=== PATIENT | female | born 1950 | race Two or more races ===

== ENCOUNTER 2023-12-13 23:06 | Inpatient (IN) | payer OTHER, MEDICAID ==
[~2023-12-13] VITALS: Ht 160 cm; Wt 74.2 kg
[2023-12-13] MEDS ORDERED: ONDANSETRON HCL 4 MG/2 ML VIAL IV ONE (23:15)
[2023-12-13] MEDS ORDERED: SODIUM CHLORIDE 0.9% 500 ML IVB ONE (23:15)
[2023-12-13 23:51] LABS: Chloride 107 mmol/L (98-107); Potassium 3.6 mmol/L (3.5-5.1); Sodium 138 mmol/L (136-145)
[2023-12-13 23:52] LABS: Anion Gap 12 (5-15); Calcium 9.5 mg/dL (8.7-10.4); Carbon Dioxide 19 mmol/L (20-30)
[2023-12-13 23:55] LABS: Eosinophils # (auto) 0.1 10 ^3/uL (0-0.8); Hematocrit 41.8 % (36.0-46.0); Nucleated Red Blood Cells % 0.1 %; Red Cell Distribution Width 14.4 % (11.8-14.3); White Blood Cell 12.8 10^3/uL (4.4-10.8)
[2023-12-13 23:56] LABS: Basophils # (auto) 0.1 10 ^3/uL (0-0.2); Basophils % (auto) 0.6 % (0.0-2.0); Eosinophils % (auto) 0.8 % (0.0-7.0); Hemoglobin 13.4 g/dL (12.2-16.2); Lymphocytes % (auto) 23.1 % (10.0-50.0); Mean Corpuscular Hemoglobin 26.8 pg (28.0-32.0); Mean Corpuscular Volume 83.5 fL (80.0-100.0); Monocytes # (auto) 0.5 10 ^3/uL (0-1.3); Monocytes % (auto) 3.6 % (0.0-12.0); Neutrophils # (auto) 9.2 10 ^3/uL (1.6-8.6); Neutrophils % (auto) 71.9 % (37.0-80.0); Red Blood Cells 5.01 10^6/uL (4.0-5.20)
[2023-12-13 23:57] LABS: Blood Urea Nitrogen 20 mg/dL (9-23); Glucose 188 mg/dL (74-106); Lipase 134 U/L (12-53)
[2023-12-14 00:54] LABS: Lactic Acid w/Reflex 6.2 mmol/L (0.4-2.0)
[2023-12-14] MEDS ORDERED: SODIUM CHLORIDE 0.9% 1,000 ML IV ONE ×2 (02:30→02:45)
[2023-12-14] MEDS ORDERED: cefTRIAXone 1GM/50ML D5W 50 ML IV ONE (02:45)
[2023-12-14] MEDS ORDERED: VANCOMYCIN 1GM/200ML 200 ML IV ONE (02:45)
[2023-12-14 02:50] VITALS: PULSE 84; RESP 17; O2SAT 96
[2023-12-14] MEDS ORDERED: MORPHINE SULFATE INJ 2 MG/ml SYRG IV PRN (04:00)
[2023-12-14] MEDS ORDERED: ONDANSETRON HCL 4 MG/2 ML VIAL IV PRN (04:00)
[2023-12-14] MEDS ORDERED: ACETAMINOPHEN 325 MG TAB PO PRN (04:00)
[2023-12-14] MEDS ORDERED: DEXTROSE (50%) 50ML SYRG IV PRN (04:00)
[2023-12-14] MEDS ORDERED: HYDROcodone-ACET 5/325MG TAB PO PRN (04:00)
[2023-12-14 05:05] LABS: COVID19 ANTIGEN SOFIA FIA NEGATIVE (NEGATIVE)
[2023-12-14] MEDS: InsuLIN REG 1unit/0.01ml Soln (100units/ml) SC SCH ×4 (07:00→23:43)
[2023-12-14] MEDS: ACCU-CHEK COMFORT CURVE STRIP VI SCH ×4 (07:00→23:39)
[2023-12-14 07:40] VITALS: RESP 17; O2SAT 96
[2023-12-14] MEDS: metroNIDAZOLE 500MG/100ML 100 ML IV SCH ×3 (08:36→23:39)
[2023-12-14] MEDS: cefTRIAXone 1GM/50ML D5W 50 ML IV SCH (08:36)
[2023-12-14 08:47] LABS: Urine Bacteria FEW /hpf (None Seen); Urine Blood Negative /uL (Negative); Urine Clarity HAZY (Clear); Urine Color Yellow (Yellow); Urine Hyaline Cast MOD /lpf (0 - 2); Urine Mucus FEW (None Seen); Urine Protein, UAD 1+ (Negative); Urine Specific Gravity 1.016 (1.001-1.035); Urine Urobilinogen Normal (Negative); Urine WBC 7 /hpf (0 - 5)
[2023-12-14] MEDS ORDERED: PANTOPRAZOLE 40 MG/10 ML VIAL INJ IV ONE (13:30)
[2023-12-14 14:00] LABS: Amphetamine Screen, Urine Neg (NEGATIVE); Benzodiazephine Screen, Urine Neg (NEGATIVE)
[2023-12-14 14:01] LABS: Barbiturate Scree,Urine Neg (NEGATIVE); Cannabinoid Screen, Urine Neg (NEGATIVE); Cocaine Screen, Urine Neg (NEGATIVE); Opiate Scree,Urine Neg (NEGATIVE); Phencyclidine Screen, Urine Neg (NEGATIVE)
[2023-12-14] MEDS ORDERED: TRAZ-227 PO (18:43)
[2023-12-14] MEDS ORDERED: DICL50TA4 PO (18:43)
[2023-12-14] MEDS ORDERED: BENA40TA70 PO (18:43)
[2023-12-14] MEDS ORDERED: ATOR40TA52 PO (18:43)
[2023-12-14] MEDS ORDERED: METO1TAB9 PO (18:43)
[2023-12-14] MEDS ORDERED: HYDR25TA5 PO (18:43)
[2023-12-14] MEDS ORDERED: METF-370 PO (18:43)
[2023-12-14 18:46] VITALS: BP 132/58; PULSE 65; RESP 18
[2023-12-14] MEDS ORDERED: AMLO1TAB23 PO (18:46)
[2023-12-14] MEDS ORDERED: HYDR-4297 PO (18:46)
[2023-12-14] MEDS ORDERED: FLUO20CA90 PO (18:46)
[2023-12-14 20:00] VITALS: BP 159/44; PULSE 70; RESP 18; TEMP 98.2; O2SAT 96
[2023-12-14 22:00] VITALS: BP 159/44; PULSE 70; RESP 18; TEMP 98.2; O2SAT 96
[2023-12-15] VITALS (7 sets, daily range): BP systolic 114–192; BP diastolic 53–58; PULSE 56–63; RESP 16–22; TEMP 98–98.7; O2SAT 95–99
[2023-12-15] MEDS: metroNIDAZOLE 500MG/100ML 100 ML IV SCH ×3 (06:08→21:07)
[2023-12-15] MEDS: InsuLIN REG 1unit/0.01ml Soln (100units/ml) SC SCH ×4 (06:08→21:19)
[2023-12-15] MEDS: ACCU-CHEK COMFORT CURVE STRIP VI SCH ×4 (06:08→21:08)
[2023-12-15 06:37] LABS: Basophils # (auto) 0 10 ^3/uL (0-0.2); Eosinophils # (auto) 0.1 10 ^3/uL (0-0.8); Hemoglobin 9.8 g/dL (12.2-16.2); Mean Corpuscular Hemoglobin 26.8 pg (28.0-32.0); Monocytes # (auto) 0.5 10 ^3/uL (0-1.3)
[2023-12-15 06:40] LABS: Basophils % (auto) 0.6 % (0.0-2.0); Eosinophils % (auto) 1.4 % (0.0-7.0); Hematocrit 29.3 % (36.0-46.0); Lymphocytes # (auto) 2.2 10 ^3/uL (0.4-5.4); Mean Corpuscular Hgb Conc. 33.3 g/dL (32.0-36.0); Mean Corpuscular Volume 80.6 fL (80.0-100.0); Monocytes % (auto) 8.9 % (0.0-12.0); Neutrophils # (auto) 2.7 10 ^3/uL (1.6-8.6); Neutrophils % (auto) 49.1 % (37.0-80.0); Nucleated Red Blood Cells % 0.2 %; Red Blood Cells 3.64 10^6/uL (4.0-5.20); Red Cell Distribution Width 14.5 % (11.8-14.3); White Blood Cell 5.6 10^3/uL (4.4-10.8)
[2023-12-15 06:41] LABS: Alanine Aminotransferase 12 U/L (7-40); Albumin 3.6 g/dL (3.2-4.8); Alkaline Phosphatase 26 U/L (46-116); Anion Gap 7 (5-15); Aspartate Aminotransferase 16 U/L (13-40); BUN/Creatinine Ratio 12.1 (10.0-20.0); Bilirubin, Total 0.4 mg/dL (0.2-1.0); Blood Urea Nitrogen 13 mg/dL (9-23); Calcium 8.8 mg/dL (8.5-10.1); Carbon Dioxide 23 mmol/L (20-30); Chloride 113 mmol/L (98-107); Glucose 97 mg/dL (74-106); Potassium 3.4 mmol/L (3.5-5.1); Sodium 143 mmol/L (136-145); Total Protein 5.7 g/dL (5.7-8.2)
[2023-12-15] MEDS: PANTOPRAZOLE 40 MG/10 ML VIAL INJ IV SCH (09:05)
[2023-12-15] MEDS: cefTRIAXone 1GM/50ML D5W 50 ML IV SCH (09:05)
[2023-12-15] MEDS: FLUoxetine HCL 20 MG CAP PO SCH (12:51)
[2023-12-15] MEDS: METOPROLOL SUCCINATE XL 50 MG TAB PO SCH (12:51)
[2023-12-15] MEDS: amLODIPine BESYLATE 5 MG TAB PO SCH (12:52)
[2023-12-15] MEDS: hydroCHLOROthiazide 25 MG TAB PO SCH (12:52)
[2023-12-15] MEDS: hydrALAZINE HCL 25 MG TAB PO SCH ×2 (14:36→21:08)
[2023-12-15] MEDS: metFORMIN HYDROCHLORIDE 500 MG TAB PO SCH (21:08)
[2023-12-15] MEDS: DICLOFENAC SODIUM 50 MG PO SCH (21:21)
[2023-12-15] MEDS ORDERED: ATORVASTATIN 20 MG TAB PO SCH (22:00)
[2023-12-16 05:00] VITALS: BP 143/49; PULSE 59; RESP 20; TEMP 98.3; O2SAT 96
[2023-12-16] MEDS: metroNIDAZOLE 500MG/100ML 100 ML IV SCH (05:33)
[2023-12-16] MEDS: hydrALAZINE HCL 25 MG TAB PO SCH (05:36)
[2023-12-16] MEDS: ACCU-CHEK COMFORT CURVE STRIP VI SCH (05:38)
[2023-12-16] MEDS: InsuLIN REG 1unit/0.01ml Soln (100units/ml) SC SCH (06:08)
[2023-12-16] MEDS ORDERED: VANCOMYCIN PER PHARMACY 0 MG IV SCH (07:15)
[2023-12-16] MEDS ORDERED: VANCOMYCIN 1GM/200ML 200 ML IV ONE (07:15)
[2023-12-16 08:00] VITALS: PULSE 72; RESP 18; O2SAT 95
[2023-12-16 08:19] VITALS: BP 111/22; PULSE 61; RESP 17; TEMP 98.3; O2SAT 95
[2023-12-16] MEDS: PANTOPRAZOLE 40 MG/10 ML VIAL INJ IV SCH (09:11)
[2023-12-16] MEDS: cefTRIAXone 1GM/50ML D5W 50 ML IV SCH (09:11)
[2023-12-16] MEDS: FLUoxetine HCL 20 MG CAP PO SCH (09:11)
[2023-12-16] MEDS: metFORMIN HYDROCHLORIDE 500 MG TAB PO SCH (09:12)
[2023-12-16] MEDS: amLODIPine BESYLATE 5 MG TAB PO SCH (09:12)
[2023-12-16] MEDS: METOPROLOL SUCCINATE XL 50 MG TAB PO SCH (09:12)
[2023-12-16] MEDS: hydroCHLOROthiazide 25 MG TAB PO SCH (09:13)
[2023-12-16] MEDS: DICLOFENAC SODIUM 50 MG PO SCH (09:13)
[2023-12-16] MEDS ORDERED: PANT40T PO (09:31)
[2023-12-16] MEDS ORDERED: METR-344 PO (09:31)
[2023-12-16] MEDS ORDERED: LEVO500T91 PO (09:31)
[2023-12-16] MEDS ORDERED: hydroCHLOROthiazide 25 MG TAB PO SCH (10:00)
[2023-12-16] MEDS ORDERED: amLODIPine BESYLATE 5 MG TAB PO SCH (10:00)
[2023-12-16] MEDS ORDERED: METOPROLOL SUCCINATE XL 50 MG TAB PO SCH (10:00)
[2023-12-16] MEDS ORDERED: traZODone HCL 50 MG TAB PO SCH (10:00)
[2023-12-16] MEDS ORDERED: FLUoxetine HCL 20 MG CAP PO SCH (10:00)
[2023-12-16 11:09] VITALS: BP 111/72; PULSE 68
[2023-12-17] MEDS ORDERED: VANCOMYCIN 1GM/200ML 200 ML IV SCH (05:00)
== END 2023-12-16 11:35 | disposition home or self-care (01) | DRG 871 ==
LOC: ER 23:06 → EDBD 23:06 → OVERFLOW 12-14 03:54 → CENTRAL 12-14 17:51
PROVIDERS: ADMIT Nurse Practitioner; ATTEND Family Medicine
DX: A41.9 Sepsis, unspecified organism (principal); K85.90 Acute pancreatitis without necrosis or infection, unspecified; N17.9 Acute kidney failure, unspecified; N39.0 Urinary tract infection, site not specified; K56.7 Ileus, unspecified; E87.21 Acute metabolic acidosis; K52.9 Noninfective gastroenteritis and colitis, unspecified; Z20.822 Contact with and (suspected) exposure to COVID-19; E86.0 Dehydration; E11.9 Type 2 diabetes mellitus without complications; I10 Essential (primary) hypertension; Z86.73 Personal history of transient ischemic attack (TIA), and cerebral infarction without residual deficits; Z90.49 Acquired absence of other specified parts of digestive tract
CPT/HCPCS: 36415; 70450; 80048; 80053; 80202; 80307; 80320; 81001; 82565; 82962; 83605; 83690; 85025; 87040; 87045; 87077; 87426; 87427; 93005; 96361; 96365; 96366; 96367; 96368; 96375; 99291; C9113; G0378; J1815; J2405; J3490

== ENCOUNTER 2024-11-17 10:41 | Emergency (ER) | payer OTHER, MEDICAID ==
[~2024-11-17] VITALS: Ht 167.6 cm; Wt 77.0 kg
[~2024-11-17 10:41] MED LIST: AMLO1TAB23 PO; ATOR40TA52 PO; BENA40TA71 PO; DICL50TA4 PO; FLUO-470 PO; HYDR25TA5 PO; HYDR50TA47 PO; LEVO500T91 PO; METF-370 PO; METO1TAB9 PO; METR-344 PO; PANT40T PO; TRAZ-227 PO
[2024-11-17 11:44] LABS: Hematocrit 34.1 % (36.0-46.0); Hemoglobin 11.4 g/dL (12.2-16.2); Mean Corpuscular Hemoglobin 28.7 pg (28.0-32.0); Mean Corpuscular Hgb Conc. 33.3 g/dL (32.0-36.0); Mean Corpuscular Volume 86.2 fL (80.0-100.0); Platelet Count (auto) 253 10^3/uL (140-450); Red Blood Cells 3.95 10^6/uL (4.0-5.20); White Blood Cell 5.6 10^3/uL (4.4-10.8)
--- NOTE | 2024-11-17 11:48 | DVH ---
CHEST RADIOGRAPH Indication: dizzy Technique: Single frontal view of the chest was obtained COMPARISON: None FINDINGS: Lines and Tubes: None Lungs: Clear Pleura: No effusion. No pneumothorax. Cardiomediastinal contours: Unremarkable Bones: Unremarkable IMPRESSION: No acute disease.
[2024-11-17 11:56] LABS: Alanine Aminotransferase 30 U/L (7-40); Albumin 4.3 g/dL (3.2-4.8); Anion Gap 9 (5-15); Aspartate Aminotransferase 34 U/L (13-40); BUN/Creatinine Ratio 28.8 (10.0-20.0); Bilirubin, Total 0.4 mg/dL (0.2-1.0); Carbon Dioxide 26 mmol/L (20-31); Potassium 4.6 mmol/L (3.5-5.1); Sodium 143 mmol/L (136-145); Total Protein 6.5 g/dL (5.7-8.2)
[2024-11-17 12:01] LABS: Alkaline Phosphatase 29 U/L (46-116); Blood Urea Nitrogen 32 mg/dL (9-23); Chloride 108 mmol/L (98-107); Glucose 138 mg/dL (74-106)
[2024-11-17 12:04] LABS: Band Neutrophils % (manual) 0; Basophils % (manual) 0 (0.0-2.0); Blast Cells 0; Metamyelocytes % 0; Myelocytes % 0; Promyelocytes % 0; Reactive Lymphocytes 0
--- NOTE | 2024-11-17 12:08 | ED.PDOC ---
HPI (NEURO) HPI Comments HPI: Poor Historian. 74-year-old female accompanied by her son at bedside. History obtained from both. Per son patient has been feeling very weak and dizzy with ambulation since yesterday. She describes the dizziness as things moving around her. Patient denies any focal neurological deficits. No associated nausea or vomiting or headache. Patient is compliant with all her medications. Initial Vital Signs: Temp :98.3 BP:188/58 HR:58 RR:20 SpO2: 100 Past Medical History: DM, DEMENTIA, DEPRESSION, ARTHRITIS, SEIZURES, HLD Past Surgical History: GALLBLADDER Social History: Denies smoking, ETOH, or drug use. Medications: METFORMIN, MIRTAZAPINE, HTCZ, METOPROL, HYDRALAZINE Allergies: NKDA REVIEW OF SYSTEMS: CONSTITUTIONAL: Denies acute: fever, diaphoresis, chills, HEAD: Denies acute: headache, photophobia Eyes: Denies acute: Double vision, vision loss, eye pain, eye discharge. EARS: Denies acute: tinnitus, hearing loss, ear discharge, ear pain, THROAT: Denies acute: sore throat, swelling, difficulty swallowing , pain with swallowing, change in voice. NECK: Denies acute: neck pain, neck swelling, stiff neck. HEART: Denies acute : chest pain, palpitations, LUNGS: Denies acute: SOB, wheezing, cough, hemoptysis ABDOMEN: Denies acute: abdominal pain, Nausea, Vomiting, diarrhea, melena , hematemesis, hematochezia SKIN: Denies acute: rash, redness, lesions, itchiness. EXTREMITIES: Denies acute: calf pain, numbness, tingling, weakness, denies pain in extremity. Denies acute: Low back pain. Neuro: Denies acute: focal neurological deficit, motor or sensory focal neurological deficit, tremors, seizure like activity, confusion, change in mental status, loss of bowel or bladder function, cauda equina like symptoms. : Denies acute: dysuria, hematuria, flank pain, increase in urinary frequency. PSYCH: Denies acute: hallucination, suicidal ideation, homicidal ideation. FEMALE: Denies acute: abnormal vaginal bleeding, foul odor, unusual discharge. PHYSICAL EXAM: General: no acute distress, awake and alert. Head: normocephalic, atraumatic. Neck: supple, trachea is midline, no swelling. Throat: Normal phonation. Eyes:, no erythema, no purulent discharge, no proptosis, no icterus. Heart: regular rate, regular rhythm, no significant murmur appreciated. Lungs: no apparent respiratory distress, Able to speak in full sentences. No wheezing, no rhonchi, no crackles. No stridors Clear to auscultation bilaterally. Abdomen: non tender to palpation, non distended, soft, no guarding, no rebound, + bowel sounds. Neuro: Awake, Alert, oriented to name, self, situation, follows commands GCS=15. Speech is normal. Skin: no petechia, no purpura, no cyanosis, non-pale, not jaundice. Lower extremities: --no - Pitting edema no deformity, no focal swelling, no calf TTP. Makes eye contact. moves all four extremities. Face: no apparent facial droop. Stroke: finger to nose cerebellar testing is intact. No pronator drift. Symmetrical manager animal muscle strength b/l PERRLA, EOM-I CN 2-12 are grossly intact, Pedal pulses are palpable. No nystagmus. No nuchal rigidity, Kernig's sign, Brudzinski's sign, no meningeal signs. Chief Complaint: Dizziness Time Seen by MD: 11:50 Reviewed Notes: Nurses Notes, Medications, Allergies Information Source: Patient, Relative Mode of Arrival: Ambulatory Severity: Moderate Headache Severity: None Timing: Days Duration: Since onset Prehospital treatment: None Symptoms: None History of: None Modifying factors: Nothing Associated Signs and Symptoms: None X-Ray, Labs, Meds, VS Vital Signs Date Time Temp Pulse Resp B/P (MAP) Pulse Ox O2 Delivery O2 Flow Rate FiO2 11/17/24 17:44 68 16 150/46 (80) 100 11/17/24 16:25 200/73 11/17/24 16:16 62 210/74 65 184/99 73 200/73 11/17/24 16:15 70 19 97 Room Air 11/17/24 16:15 97.7 70 19 178/62 (100) 97 97.7 11/17/24 13:20 97.5 60 16 130/50 (76) 99 97.5 11/17/24 10:50 57 11/17/24 10:48 98.3 58 20 188/58 (101) 100 Lab Test 11/17/24 15:01 11/17/24 12:54 11/17/24 11:20 11/17/24 10:50 Range/Units Lactic Acid Level 1.0 2.1 *H 0.4-2.0 mmol/L Troponin I High Sensitivity 4 4 4 </=34 ng/L White Blood Count 5.6 4.4-10.8 10^3/uL Red Blood Count 3.95 L 4.0-5.20 10^6/uL Hemoglobin 11.4 L 12.2-16.2 g/dL Hematocrit 34.1 L 36.0-46.0 % Mean Corpuscular Volume 86.2 80.0-100.0 fL Mean Corpuscular Hemoglobin 28.7 28.0-32.0 pg Mean Corpuscular Hemoglobin Concent 33.3 32.0-36.0 g/dL Red Cell Distribution Width 15.0 H 11.8-14.3 % Platelet Count 253 140-450 10^3/uL Mean Platelet Volume 7.6 6.9-10.8 fL Neutrophils (%) (Auto) 37.0-80.0 % Lymphocytes (%) (Auto) 10.0-50.0 % Monocytes (%) (Auto) 0.0-12.0 % Basophils (%) (Auto) 0.0-2.0 % Neutrophils # (Auto) 1.6-8.6 10 ^3/uL Lymphocytes # (Auto) 0.4-5.4 10 ^3/uL Monocytes # (Auto) 0-1.3 10 ^3/uL Differential Total Cells Counted 100.0 100 Neutrophils % (Manual) 52 37.0-80.0 Band Neutrophils % (Manual) 0 Lymphocytes % (Manual) 36 10.0-50.0 Monocytes % (Manual) 8 0-12 Eosinophils % (Manual) 4 0-7 Basophils % (Manual) 0 0.0-2.0 Metamyelocytes % (manual) 0 Myelocytes % (Manual) 0 Promyelocytes % (Manual) 0 Blast Cells % (Manual) 0 Reactive Lymphocytes 0 Platelet Estimate Adequate Sodium Level 143 136-145 mmol/L Potassium Level 4.6 3.5-5.1 mmol/L Chloride Level 108 H 98-107 mmol/L Carbon Dioxide Level 26 20-31 mmol/L Anion Gap 9 5-15 Blood Urea Nitrogen 32 H 9-23 mg/dL Creatinine 1.11 H 0.550-1.02 mg/dL Glomerular Filtration Rate Calc 52 >90 mL/min BUN/Creatinine Ratio 28.8 H 10.0-20.0 Serum Glucose 138 H 74-106 mg/dL Calcium Level 10.0 8.7-10.4 mg/dL Total Bilirubin 0.4 0.2-1.0 mg/dL Aspartate Amino Transferase (AST) 34 13-40 U/L Alanine Aminotransferase (ALT) 30 7-40 U/L Alkaline Phosphatase 29 L 46-116 U/L Total Protein 6.5 5.7-8.2 g/dL Albumin 4.3 3.2-4.8 g/dL Urine Color Light-yellow Yellow Urine Clarity Clear Clear Urine pH 5.5 5.0-9.0 Urine Specific [place] 1.015 1.001-1.035 Urine Protein Negative Negative Urine Ketones Negative Negative Urine Blood Negative Negative /uL Urine Nitrite Negative Negative Urine Bilirubin Negative Negative Urine Urobilinogen Normal Negative mg/dL Urine Leukocyte Esterase 3+ Negative /uL Urine RBC 6 0 - 4 /hpf Urine WBC 11 0 - 5 /hpf Urine Squamous Epithelial Cells Few <5 /hpf Urine Bacteria Few H None Seen /hpf Urine Glucose Normal Normal mg/dL Current Medications Medications (Trade) Dose Ordered Sig/Alana Route Start Time Stop Time Status Last Admin Meclizine HCl (Antivert Tablet) 25 mg ONCE ONCE PO 11/17/24 12:30 11/17/24 12:33 DC 11/17/24 13:19 Ceftriaxone Sodium 50 ml @ 100 mls/hr ONCE ONCE IV 11/17/24 15:45 11/17/24 16:14 DC 11/17/24 16:25 Hydralazine HCl (Apresoline Injection) 5 mg ONCE ONCE IV 11/17/24 16:00 11/17/24 16:01 DC 11/17/24 16:25 [place] [id number] Ph: [phone] DIAGNOSTIC IMAGING Diagnostic Imaging Report : [id number] Signed PATIENT: NED ROSE IACCT: [id number] UNIT: [id number] : 1950 LOC: ER ROOM / BED: / AGE / SEX: 74 / F ADM STATUS: REG ER SERVICE 1230 ORDERING PHYSICIAN: YOSELIN OCONNOR DO PROCEDURE(s): HWOCT - HEAD WITHOUT CONTRAST REASON: weak/dizzy ORDER NUMBER(s): [id number], ACCESSION NUMBER(s): [id number] EXAM: CT HEAD WITHOUT CONTRAST INDICATION: weak/dizzy TECHNIQUE: CT of the head without intravenous contrast. Radiation Dose : 1. Head: CT Dose: CTDI volume is 54 mGy. Dose-length product is 864 mGy*cm The dose indicators for CT are the volume Computed Tomography (CT) Dose Index (CTDIvol) and the Dose Length Product (DLP), and are measured in units of mGy and mGy-cm, respectively. These indicators are not patient dose, but values generated from the CT scanner acquisition factors. The report includes radiation exposure data for exposures received during this examination. COMPARISON: CT HEAD WITHOUT CONTRAST on DOS: 12/14/23 FINDINGS: There is no evidence of acute intracranial hemorrhage, extra-axial collection, mass effect, midline shift, herniation or hydrocephalus. The ventricles, sulci and cisterns are age appropriate. The christian-white differentiation is intact. Patchy periventricular and subcortical white matter hypoattenuation is nonspecific but may be related to small vessel ischemic disease. The visualized paranasal sinuses and mastoid air cells are clear. The surrounding soft tissues and osseous structures are unremarkable. IMPRESSION: No acute intracranial abnormality. Radiation optimization: All CT scans at this facility use at least one of these dose optimization techniques: automated exposure control mA and/or kV adjustment per patient size (includes targeted exams where dose is matched to clinical indication) or iterative reconstruction. ATED BY: ASHVIN PARK MD DICTATED DATE/TIME: 11/17/24 124 SIGNED BY: ASHVIN PARK MD SIGNED DATE/TIME: 11/17/24 124 CC: [place] [id number] Ph: [phone] DIAGNOSTIC IMAGING Diagnostic Imaging Report : [id number] Signed PATIENT: NED ROSE IACCT: [id number] UNIT: [id number] : 1950 LOC: ER ROOM / BED: / AGE / SEX: 74 / F ADM STATUS: REG ER SERVICE 1059 ORDERING PHYSICIAN: YOSELIN OCONNOR DO PROCEDURE(s): CXRP - CHEST PORTABLE REASON: dizzy ORDER NUMBER(s): [id number], ACCESSION NUMBER(s): [id number] CHEST RADIOGRAPH Indication: dizzy Technique: Single frontal view of the chest was obtained COMPARISON: None FINDINGS: Lines and Tubes: None Lungs: Clear Pleura: No effusion. No pneumothorax. Cardiomediastinal contours: Unremarkable Bones: Unremarkable IMPRESSION: No acute disease. ATED BY: ASHVIN PARK MD DICTATED DATE/TIME: 11/17/24 114 SIGNED BY: ASHVIN PARK MD SIGNED DATE/TIME: 11/17/24 114 CC: Reevaluation 1ST: Unchanged Additional Information [place] [address] Ph: [phone] DIAGNOSTIC IMAGING Diagnostic Imaging Report : [id number] Signed PATIENT: NED ROSE IACCT: [id number] UNIT: [id number] : 1950 LOC: ER ROOM / BED: / AGE / SEX: 74 / F ADM STATUS: REG ER SERVICE 1059 ORDERING PHYSICIAN: YOSELIN OCONNOR DO PROCEDURE(s): CXRP - CHEST PORTABLE REASON: dizzy ORDER NUMBER(s): [id number], ACCESSION NUMBER(s): [id number] CHEST RADIOGRAPH Indication: dizzy Technique: Single frontal view of the chest was obtained COMPARISON: None FINDINGS: Lines and Tubes: None Lungs: Clear Pleura: No effusion. No pneumothorax. Cardiomediastinal contours: Unremarkable Bones: Unremarkable IMPRESSION: No acute disease. ATED BY: ASHVIN PARK MD DICTATED DATE/TIME: 11/17/24 114 SIGNED BY: ASHVIN PARK MD SIGNED DATE/TIME: 11/17/24 114 CC: [place] [id number] Ph: [phone] DIAGNOSTIC IMAGING Diagnostic Imaging Report : [id number] Signed PATIENT: NED ROSE IACCT: [id number] UNIT: [id number] : 1950 LOC: ER ROOM / BED: / AGE / SEX: 74 / F ADM STATUS: REG ER SERVICE 1230 ORDERING PHYSICIAN: YOSELIN OCONNOR DO PROCEDURE(s): HWOCT - HEAD WITHOUT CONTRAST REASON: weak/dizzy ORDER NUMBER(s): [id number], ACCESSION NUMBER(s): [id number] EXAM: CT HEAD WITHOUT CONTRAST INDICATION: weak/dizzy TECHNIQUE: CT of the head without intravenous contrast. Radiation Dose : 1. Head: CT Dose: CTDI volume is 54 mGy. Dose-length product is 864 mGy*cm The dose indicators for CT are the volume Computed Tomography (CT) Dose Index (CTDIvol) and the Dose Length Product (DLP), and are measured in units of mGy an d mGy-cm, respectively. These indicators are not patient dose, but values generated from the CT scanner acquisition factors. The report includes radiation exposure data for exposures received during this examination. COMPARISON: CT HEAD WITHOUT CONTRAST on DOS: 12/14/23 FINDINGS: There is no evidence of acute intracranial hemorrhage, extra-axial collection, mass effect, midline shift, herniation or hydrocephalus. The ventricles, sulci and cisterns are age appropriate. The christian-white differentiation is intact. Patchy periventricular and subcortical white matter hypoattenuation is nonspecific but may be related to small vessel ischemic disease. The visualized paranasal sinuses and mastoid air cells are clear. The surrounding soft tissues and osseous structures are unremarkable. IMPRESSION: No acute intracranial abnormality. Radiation optimization: All CT scans at this facility use at least one of these dose optimization techniques: automated exposure control mA and/or kV adjustment per patient size (includes targeted exams where dose is matched to clinical indication) or iterative reconstruction. ATED BY: ASHVIN PARK MD DICTATED DATE/TIME: 11/17/24 124 SIGNED BY: ASHVIN PARK MD SIGNED DATE/TIME: 11/17/24 124 CC: Departure 1 Departure Time of Disposition: 18:03 Impression: Primary Impression: Vertigo Additional Impressions: Hypertensive urgency Generalized weakness UTI (urinary tract infection) Disposition: HOME / SELF CARE / HOMELESS Condition: Stable Additional Instructions: Additional discharge instructions: You MUST follow-up with your primary care/family doctor in 1 to 2 days. If you are unable to see your primary care/family doctor, please return to our emergency room for re-assessment and re-evaluation in 1 to 2 days. Return to the emergency room here in our facility or to the nearest ER [facility] if your symptoms change or worsen. CONSULTATIONS: you MUST Follow-up for consultation as soon as possible with: -neurology and cardiology in 1-2 days. Please call for appointment. You MUST call the consultants office yourself to make an appointment. You may need to arrange that through your insurance and/or your primary/family doctor. If you are unable to see the consultant education in 1 to 2 days, you must return to our emergency room (or any other ER of your choice) for re-assessment and re- evaluation. Adequate fluid hydration. Below is a copy of your radiological report for follow up: e-Prescriptions Meclizine HCl (Meclizine 25) 25 Mg Tab 25 MG PO [id number] PRN for 3 Days, #6 TAB Prov: YOSELIN OCONNOR DO 11/17/24 Nitrofurantoin Monohydrate Mac (Macrobid) 100 Mg Cap 100 MG PO BID for 7 Days, #14 CAP Prov: YOSELIN OCONNOR DO 11/17/24 Discharged With: Self, Relative Critical Care Note Critical Care Time?: No Stability Stability form required: No Heart Score Heart Score: Heart Score Response (Comments) Value Age >65 2 Total 2 I personally scribed for YOSELIN OCONNOR DO ([email or web address]) on 11/17/24 at 12:08. Electron ically submitted by Maki Arcos ([email or web address]). I personally scribed for YOSELIN OCONNOR DO (DVFARMI) on 11/17/24 at 12:13. Electronically submitted by Maki Arcos ([email or web address]). I personally scribed for YOSELIN OCONNOR DO (DVFARMI) on 11/17/24 at 12:39. Electronically submitted by Maki Arcos ([email or web address]). I personally scribed for ANASTASIA,YOSELIN J DO (DVFARMI) on 11/17/24 at 12:41. Electronically submitted by Maki Arcos ([email or web address]). I personally scribed for TRANG OCONNORE J DO (DVFARMI) on 11/17/24 at 12:57. Electronically submitted by Maki Arcos ([email or web address]). I personally scribed for ANASTASIATRANGE J DO (DVFARMI) on 11/17/24 at 13:59. Electronically submitted by Maki Arcos ([email or web address]). I personally scribed for TRANG OCONNORE J DO (DVFARMI) on 11/17/24 at 14:00. Electronically submitted by Maki Arcos ([email or web address]). I personally scribed for TRANG OCONNORE J DO (DVFARMI) on 11/17/24 at 14:01. Electronically submitted by Maki Arcos ([email or web address]). I personally scribed for TRANG OCONNORE J DO (DVFARMI) on 11/17/24 at 18:07. Electronically submitted by Maki Arcos ([email or web address]). ANASTASIA,YOSELIN J DO Nov 17, 2024 12:08
[2024-11-17 12:34] LABS: Eosinophils % (manual) 4 (0-7); Lymphocytes % (manual) 36 (10.0-50.0); Monocytes % (manual) 8 (0-12); Platelet Estimate Adequate
--- NOTE | 2024-11-17 12:50 | DVH ---
EXAM: CT HEAD WITHOUT CONTRAST INDICATION: weak/dizzy TECHNIQUE: CT of the head without intravenous contrast. Radiation Dose : 1. Head: CT Dose: CTDI volume is 54 mGy. Dose-length product is 864 mGy*cm The dose indicators for CT are the volume Computed Tomography (CT) Dose Index (CTDIvol) and the Dose Length Product (DLP), and are measured in units of mGy and mGy-cm, respectively. These indicators are not patient dose, but values generated from the CT scanner acquisition factors. The report includes radiation exposure data for exposures received during this examination. COMPARISON: CT HEAD WITHOUT CONTRAST on DOS: 12/14/23 FINDINGS: There is no evidence of acute intracranial hemorrhage, extra-axial collection, mass effect, midline s hift, herniation or hydrocephalus. The ventricles, sulci and cisterns are age appropriate. The christian-white differentiation is intact. Patchy periventricular and subcortical white matter hypoattenuation is nonspecific but may be related to small vessel ischemic disease. The visualized paranasal sinuses and mastoid air cells are clear. The surrounding soft tissues and osseous structures are unremarkable. IMPRESSION: No acute intracranial abnormality. Radiation optimization: All CT scans at this facility use at least one of these dose optimization ashish hniques: automated exposure control mA and/or kV adjustment per patient size (includes targeted exam s where dose is matched to clinical indication) or iterative reconstruction.
[2024-11-17] MEDS: MECLIZINE HCL 25 MG TAB PO ONE (13:19)
[2024-11-17 14:16] LABS: Lactic Acid w/Reflex 2.1 mmol/L (0.4-2.0)
[2024-11-17 14:34] LABS: Urine Bacteria FEW /hpf (None Seen); Urine Blood Negative /uL (Negative); Urine Clarity Clear (Clear); Urine Color Light-Yellow (Yellow); Urine Protein, UAD Negative (Negative); Urine Specific Gravity 1.015 (1.001-1.035); Urine Squamous Epithelial Cell FEW /hpf (<5); Urine Urobilinogen Normal (Negative); Urine WBC 11 /hpf (0 - 5); Urine pH 5.5 (5.0-9.0)
[2024-11-17] MEDS: SODIUM CHLORIDE 0.9% 1,000 ML IV ONE (16:24)
[2024-11-17] MEDS: hydrALAZINE HCL 20 MG/ML VL IV ONE (16:25)
[2024-11-17] MEDS: cefTRIAXone 1GM/50ML D5W 50 ML IV ONE (16:25)
[2024-11-17] MEDS: SODIUM CHLORIDE 0.9% 500 ML IV ONE (16:45)
[2024-11-17] MEDS ORDERED: NITR-87 PO (18:05)
[2024-11-17] MEDS ORDERED: MECL1TAB42 PO (18:06)
[2024-11-17 18:14] VITALS: BP 152/55; PULSE 64; RESP 16; TEMP 97.9; O2SAT 99
--- NOTE | 2024-11-17 18:52 | ECG ---
[facility] Test Date: 2024-11-17 Test Time: 10:50:13 Pat Name: NED SHERIFF Department: ER Room: Gender: F Java Developer Consultant: TYSHAWN : 1950 Requested By: YOSELIN OCONNOR Order Number: [id number] Reading MD: Measurements Intervals [place] Rate: 57 P: 56 [place]: 133 QRS: 52 QRSD: 94 T: 38 QT: 444 QTc: 433 Interpretive Statements Sinus rhythm Low voltage, precordial leads Abnormal R-wave progression, early transition Please click the below link to view image of tracing.
== END 2024-11-17 18:22 | disposition home or self-care (01) ==
LOC: ER 10:43
DX: I16.0 Hypertensive urgency (principal); N39.0 Urinary tract infection, site not specified; R42 Dizziness and giddiness; R53.1 Weakness; E11.9 Type 2 diabetes mellitus without complications; F03.93 Unspecified dementia, unspecified severity, with mood disturbance; F32.A Depression, unspecified; M19.90 Unspecified osteoarthritis, unspecified site; E78.5 Hyperlipidemia, unspecified; Z98.890 Other specified postprocedural states; Z79.899 Other long term (current) drug therapy
CPT/HCPCS: 36415; 70450; 71045; 80053; 81001; 83605; 84484; 85007; 85027; 93005; 96365; 96375; 99285; J0360; J0696; J8597